=== PATIENT | female | born 1970 ===

== ENCOUNTER 2017-09-11 11:58 | Emergency (ER) | payer OTHER ==
[2017-09-11 12:25] VITALS: BP 124/84
[2017-09-11] MEDS ORDERED: Meclizine TAB* 12.5 MG PO ONE (12:39)
[2017-09-11] MEDS ORDERED: Ondansetron ODT TAB* 4 MG SL PRN (12:39)
--- NOTE | 2017-09-11 12:46 | UC ---
UC General HPI - HPI Summary HPI Summary: Patient presents complaining of pain and pressure to both ears with dizziness since yesterday. She notes that the dizziness is shifted, spinning, off balance. She has a history of having her ears plugged and dizziness. She's been treated in [place] where she resides with steroids and meclizine in the past which gives her good relief. She notes that this spell is the same. Upon arrival here she did take 2 tablets of her mother's truck 0.25 mg meclizine which did give her relief; however, she had recurrent dizziness this morning with nausea and vomiting 2. She notes the pressure in her ears and is not being relieved by her Flonase, Radha, nasal flush and Singulair. She does offer that this all seemed to begin during her flight here from [place]. Her symptoms are made worse by change in position and her forehead and are relieved by remaining still. She has no loss of vision or focal numbness or weakness. She has no associated injury or illness. 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 Negative: Fever, Headache - Allergy/Home Medications Allergies/Adverse Reactions: Allergies Allergy/AdvReac Type Severity Reaction Status Date / Time morphine Allergy Severe Stomach Verified 09/11/17 12:11 Cramps prochlorperazine Allergy Severe Stomach Verified 09/11/17 12:11 [From Compazine] Cramps promethazine [From Phenergan] Allergy Severe Stomach Verified 09/11/17 12:11 Cramps DAIRY Allergy Anaphylatic Uncoded 09/11/17 12:11 Shock Home Medications: Home Medications Famciclovir(NF) [Famvir(NF)] 1 tab QAM 09/11/17 [History Confirmed 09/11/17] Fexofenadine/Pseudoephedrine [Radha-D 24 Hour Tablet] 1 tab DAILY 09/11/17 [ History Confirmed 09/11/17] Fluticasone NASAL SPRAY 50MCG* [Flonase NASAL SPRAY 50MCG*] 1 spray BID [History Confirmed 09/11/17] Levothyroxine TAB* [Synthroid TAB*] 1 tab DAILY 09/11/17 [History Confirmed ] Montelukast Sodium TAB* [Singulair 10 MG TAB*] 1 tab QAM 09/11/17 [History Confirmed 09/11/17] Omeprazole CAP* [Prilosec CAP* 20 MG] 20 mg QAM 09/11/17 [History Confirmed ] Sertraline* [Zoloft*] 200 mg BEDTIME 09/11/17 [History Confirmed 09/11/17] Solifenacin Succinate [Vesicare] 1 tab QAM 09/11/17 [History Confirmed 09/11/17] buPROPion TAB* [Wellbutrin TAB*] 1 tab BEDTIME 09/11/17 [History Confirmed 09/11] celeCOXIB CAP* [Celebrex CAP*] 1 tab QAM 09/11/17 [History Confirmed 09/11/17] clonazePAM TAB(*) [Klonopin TAB(*)] 1 tab BEDTIME 09/11/17 [History Confirmed ] PMH/Surg Hx/FS Hx/Imm Hx - Additional Past Medical History Additional PMH: Reflux, thyroid disease, allergies, neuropathy, vertigo. - Surgical History Surgical History: Yes Surgery Procedure, Year, and Place: Hysterectomy. [place]. Bowel resection. 2x C -section - Family History Known Family History: Positive: Other - Vertigo - Social History Occupation: Employed Full-time Alcohol Use: None Substance Use Type: None Smoking Status (MU): Current Every Day Smoker Type: Cigarettes Amount Used/How Often: 1 PPD - Immunization History Vaccination Up to Date: Yes Review of Systems ENT: Ear Ache, Sinus Congestion Gastrointestinal: Vomiting, Nausea Neurological: Other - Dizziness Is Patient Immunocompromised?: No All Other Systems Reviewed And Are Negative: Yes Physical Exam Triage Information Reviewed: Yes Appearance: Well-Appearing Vital Signs: Initial Vital Signs Temp 98.8 F 09/11/17 12:15 Pulse 80 09/11/17 12:15 Resp 16 09/11/17 12:15 BP 124/84 09/11/17 12:15 Pulse Ox 100 09/11/17 12:15 Vital Signs Reviewed: Yes Eyes: Positive: Conjunctiva Clear, Other: - Pupils are equal round reactive to light extraocular movements are intact. ENT: Positive: Pharynx normal, TMs normal. Negative: Nasal congestion, Nasal drainage Neck: Positive: Supple, Nontender, No Lymphadenopathy, Other: - No carotid bruits. Negative: Nuchal Rigidity Respiratory: Positive: Lungs clear, Normal breath sounds Cardiovascular: Positive: RRR, No Murmur, Pulses Normal Abdomen Description: Positive: Nontender, No Organomegaly, Soft Bowel Sounds: Positive: Present Musculoskeletal: Positive: ROM Intact, No Edema Neurological: Positive: Other: - Alert and oriented to person place and time. Cranial nerves II through XII grossly intact. 5 out of 5 strength and 2+ reflexes 4. Negative Romberg and negative pronator drift. Normal steady gait. Symptom-free while still in seated in chair symptoms reproduced upon standing and turning of the head. Psychological: Positive: Normal Response To Family, Age Appropriate Behavior Skin Exam: Normal Course/Dx - Course Course Of Treatment: Patient's neuro exam is reassuring. Her history and physical exam are consistent with peripheral vertigo and no concern for central vertigo plus she has had similar signs and symptoms in the past on more than one occasion and respond and resolve with steroids and meclizine. History also supports eustachian tube dysfunction that is failing current treatment thus will add decongestant and steroid to her treatment. We will also add meclizine which is worked well for her and Zofran given associated nausea. She agrees to close follow-up with her primary care upon return to [place] this as well as good ER for any change or worsening. - Differential Dx - Multi-Symptom Provider Diagnoses: Dizziness. Eustachian tube dysfunction. Discharge - Sign-Out/Discharge Documenting (check all that apply): Patient Departure - Discharge Plan Condition: Stable Disposition: HOME Prescriptions: Meclizine TAB* [Antivert 12.5 TAB*] 25 mg PO Q6H PRN #15 tab PRN Reason: Dizziness methylPREDNISolone [Medrol Dosepak 4 MG*] 0 mg PO .SEE BERNABE [employer]STRUCTION #1 tab Ondansetron [Zofran Odt] 4 mg PO Q6HR PRN #8 tab.rapdis PRN Reason: Dizziness Patient Education Materials: Vertigo (DC) Referrals: No Primary Care Phys,NOPCP [Primary Care Provider] - Additional Instructions: FOLLOW UP WITH YOUR DOCTOR IN [place] UPON RETURN HOME THIS . GO TO ER FOR ANY WORSENING. CONTINUE HOME MEDICATIONS. START A DECONGESTANT PER LABEL. TAKE A MECLIZINE 1 HOUR BEFORE YOUR FLIGHT HOME. - Billing Disposition and Condition Condition: STABLE Disposition: Home
[2017-09-11] MEDS ORDERED: Ondansetron ODT TAB* 4 MG PO ONE (12:50)
== END 2017-09-11 12:54 | disposition home or self-care (01) ==
LOC: UCCORT 11:58
DX: R42 Dizziness and giddiness (principal); H69.90 Unspecified Eustachian tube disorder, unspecified ear; F17.210 Nicotine dependence, cigarettes, uncomplicated
CPT/HCPCS: 99202; A9270-GY; G0463